=== PATIENT | female | born 1935 | race Caucasian/White ===

== ENCOUNTER 2018-08-22 04:52 | Emergency (ER) | payer MEDICARE, OTHER ==
[2018-08-22] MEDS ORDERED: Silver Nitrate Applicator Each TOP ONE (05:01)
--- NOTE | 2018-08-22 05:05 | EDM.PDOC ---
ED HPI GENERAL MEDICAL PROBLEM - General Chief Complaint: General Stated Complaint: BLEEDING INTERNALLY [id number] Time Seen by Provider: 08/22/18 04:57 Source of Information: Reports: Patient, Family History Limitations: Reports: No Limitations - History of Present Illness INITIAL COMMENTS - FREE TEXT/NARRATIVE: spouse states pt woke him c/o bleeding from mouth. pt states blood coming from mouth - Related Data Allergies Allergy/AdvReac Type Severity Reaction Status Date / Time No Known Allergies Allergy Verified 08/22/18 05:04 Home Meds: Home Meds Aspirin [Halfprin] 81 mg PO DAILY 08/22/18 [History] Carbidopa/Levodopa [Carbidopa-Levo ER 25-100] 1 tab PO TID 08/22/18 [History] Levothyroxine [Synthroid] 50 mcg PO ACBREAKFAST 08/22/18 [History] Rivastigmine 1 patch TOP DAILY 08/22/18 [History] Simvastatin 20 mg PO BEDTIME 08/22/18 [History] ED ROS GENERAL - Review of Systems Review Of Systems: ROS reveals no pertinent complaints other than HPI. ED EXAM, GENERAL - Physical Exam Exam: See Below Exam Limited By: No Limitations General Appearance: Alert, WD/WN, No Apparent Distress Ears: Hearing Grossly Normal Nose: Other (right nostril old blood.) Throat/Mouth: Normal Voice, No Airway Compromise, Other (small abrasion left tongue edge) Head: Atraumatic Neck: Non-Tender, Full Range of Motion Respiratory/Chest: No Respiratory Distress Cardiovascular: Regular Rate, Rhythm GI/Abdominal: Soft, Non-Tender Neurological: Alert, Oriented, Normal Cognition, Normal Gait, No Motor/Sensory Deficits Psychiatric: Normal Affect, Normal Mood Skin Exam: Warm, Dry, Normal Color Lymphatic: No Adenopathy ED GENERAL MEDICAL PROCEDURES - Additional/Other Procedure(s) Other (Free Text) Procedure(s): 1) right hasslebach small oozing 2) silver nitrate applied Course - Vital Signs Last Recorded V/S: Last Vital Signs Temp 36.4 C 08/22/18 04:59 Pulse 85 08/22/18 04:59 Resp 18 08/22/18 04:59 BP 130/45 L 08/22/18 04:59 Pulse Ox 100 08/22/18 04:59 - Orders/Labs/Meds Meds: Medications Discontinued Medications Generic Name Dose Route Start Last Admin Trade Name Freq PRN Reason Stop Dose Admin Silver Nitrate 2 each 08/22/18 05:01 08/22/18 05:10 Silver Nitrate TOP 08/22/18 05:02 2 each ONETIME ONE Administration - Re-Assessments/Exams Free Text/Narrative Re-Assessment/Exam: 08/22/18 05:45 re-exam; s/p cautery no further bleeding Departure - Departure Time of Disposition: 05:46 Disposition: Home, Self-Care 01 Condition: Good Clinical Impression: Anterior epistaxis - Discharge Information Instructions: Nosebleed, [id number] Forms: ED Department Discharge Additional Instructions: 1) avoid nose blowing 2) avoid aspirin next 2 days 3) follow up at clinic 4) recheck as needed
== END 2018-08-22 05:55 | disposition home or self-care (01) ==
LOC: DL.ED 04:52
DX: R04.0 Epistaxis (principal); Z79.82 Long term (current) use of aspirin; Z79.899 Other long term (current) drug therapy
CPT/HCPCS: 30901; 99282

== ENCOUNTER 2019-05-19 08:35 | Emergency (ER) | payer MEDICARE, OTHER ==
[~2019-05-19 08:35] MED LIST: Sodium Chloride 0.9% 10 ML Syringe FLUSH PRN
--- NOTE | 2019-05-19 08:36 | EDM.PDOC ---
ED HPI GENERAL MEDICAL PROBLEM - General Stated Complaint: AMBULANCE Time Seen by Provider: 05/19/19 08:32 Source of Information: Reports: Patient, EMS, EMS Notes Reviewed, Family, RN, RN Notes Reviewed History Limitations: Reports: No Limitations - History of Present Illness INITIAL COMMENTS - FREE TEXT/NARRATIVE: patient presents to ER per [facility] with complaint of constipation.ambulance was dispatched for an elderly female who was unresponsive. Upon arrival to the resident's EMS states patient had awoken for the , states she was sleeping very soundly. Patient does have history of Parkinson's/dementia. states she is acting appropriately at this time. Patient is very quiet and does not answer questions appropriately. Patient is unable to follow commands, confused. states the patient has not had a good bowel movement in about 3 weeks. He states power tool repair technician told him she had a bowel movement movement 3-4 days ago, but was small and hard. states the patient is incontinent of urine, and wears a brief. He states there has been some bright red blood from the rectum, and she does have a history of hemorrhoids. states she does not express pain very often, but he gets the indication she is having pain. 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 - Physical Exam Exam: See Below Exam Limited By: No Limitations General Appearance: Alert, WD/WN, No Apparent Distress, Thin, Other (ementia, confused) Eye Exam: Bilateral Eye: EOMI, Normal Inspection Ears: Normal External Exam, Hearing Grossly Normal Nose: Normal Inspection Throat/Mouth: Normal Inspection, Normal Voice, No Airway Compromise Head Exam: Atraumatic, Normocephalic Neck: Normal Inspection, Supple, Non-Tender, Full Range of Motion Respiratory/Chest: No Respiratory Distress, Lungs Clear, Normal Breath Sounds, No Accessory Muscle Use, Chest Non-Tender Cardiovascular: Normal Peripheral Pulses, Regular Rate, Rhythm, No Edema, No Gallop, No JVD, No Murmur, No Rub GI/Abdominal: Normal Bowel Sounds, Soft, Non-Tender, No Organomegaly, No Distention, No Abnormal Bruit, No Mass (Female) Exam: Deferred Rectal (Female) Exam: Deferred Neuro Exam (Abbreviated): Alert, Confused, Disoriented, Slow to Respond Back Exam: Normal Inspection, Full Range of Motion Extremities: Normal Inspection, Normal Range of Motion, Non-Tender, No Pedal Edema, Normal Capillary Refill Psychiatric: Normal Mood, Flat Affect Skin Exam: Warm, Dry, Intact, Normal Color, No Rash Course - Vital Signs Last Recorded V/S: Last Vital Signs Temp 98.6 F 05/19/19 08:38 Pulse 69 05/19/19 08:38 Resp 18 05/19/19 08:38 BP 159/82 H 05/19/19 08:38 Pulse Ox 100 05/19/19 08:38 - Orders/Labs/Meds Orders: Active Orders 24 hr Category Date Time Status Blood Glucose Check, Bedside [RC] ONETIME Care 05/19/19 08:27 Active EKG Documentation Completion [RC] STAT Care 05/19/19 08:26 Active Peripheral IV Care [RC] . DIRECTED Care 05/19/19 08:27 Active CULTURE BLOOD [BC] Stat Lab 05/19/19 08:45 Received CULTURE BLOOD [BC] Stat Lab 05/19/19 08:54 Received CULTURE URINE [RM] Stat Lab 05/19/19 09:17 Received Blood Culture x2 Reflex Set [OM.PC] Stat Oth 05/19/19 08:26 Ordered Peripheral IV Insertion Adult [OM.PC] Stat Oth 05/19/19 08:26 Ordered Labs: Laboratory Tests 05/19/19 05/19/19 05/19/19 Range/Units 08:45 08:45 08:45 WBC 9.2 (5.0-10.0) 10^3/uL RBC 3.17 L (4.2-5.4) 10^6/uL Hgb 11.1 L (12.0-16.0) g/dL Hct 33.0 L (37.0-47.0) % MCV 104.1 H (80-100) fL MCH 35.0 H (27.0-34.0) pg MCHC 33.6 (33.0-35.0) g/dL Plt Count 244 (150-450) 10^3/uL Neut % (Auto) 70.4 (42.2-75.2) % Lymph % (Auto) 22.3 (20.5-50.1) % Letcher % (Auto) 6.3 (2-8) % Eos % (Auto) 0.7 L (1.0-3.0) % Baso % (Auto) 0.3 (0.0-1.0) % PT 8.5 L (9.0-12.0) SEC INR 0.8 L (0.9-1.2) Sodium 137 (135-145) mmol/L Potassium 3.8 (3.6-5.0) mmol/L Chloride 102 (101-111) mmol/L Carbon Dioxide 27.0 (21.0-31.0) mmol/L Anion Gap 11.8 BUN 20 H (7-18) mg/dL Creatinine 0.8 (0.6-1.3) mg/dL Est Cr Clr Drug Dosing 40.60 mL/min Estimated GFR (MDRD) > 60 BUN/Creatinine Ratio 25.00 Glucose 86 (74-105) mg/dL POC Glucose (83-110) mg/dl Lactic Acid (0.5-2.2) mmol/L Calcium 8.9 (8.4-10.2) mg/dl Total Bilirubin 0.6 (0.2-1.0) mg/dL AST 23 (10-42) IU/L ALT 18 (10-60) IU/L Alkaline Phosphatase 36 L (42-121) IU/L Troponin I < 0.02 (0.00-0.02) ng/ml Total Protein 6.5 L (6.7-8.2) g/dl Albumin 3.9 (3.2-5.5) g/dl Globulin 2.6 Albumin/Globulin Ratio 1.50 Urine Color (YELLOW) Urine Appearance (CLEAR) Urine pH (5.0-9.0) Ur Specific [place] (1.005-1.030) Urine Protein (NEGATIVE) Urine Glucose (UA) (NEGATIVE) Urine Ketones (NEGATIVE) Urine Occult Blood (NEGATIVE) Urine Nitrite (NEGATIVE) Urine Bilirubin (NEGATIVE) Urine Urobilinogen (0.2-1.0) mg/dL Ur Leukocyte Esterase (NEGATIVE) Urine RBC /HPF Urine WBC (0-5/HPF) /HPF Ur Epithelial Cells (NOT SEEN) /HPF Urine Bacteria (0-FEW/HPF) /HPF 05/19/19 05/19/19 05/19/19 Range/Units 08:45 08:50 09:17 WBC (5.0-10.0) 10^3/uL RBC (4.2-5.4) 10^6/uL Hgb (12.0-16.0) g/dL Hct (37.0-47.0) % MCV (80-100) fL MCH (27.0-34.0) pg MCHC (33.0-35.0) g/dL Plt Count (150-450) 10^3/uL Neut % (Auto) (42.2-75.2) % Lymph % (Auto) (20.5-50.1) % Letcher % (Auto) (2-8) % Eos % (Auto) (1.0-3.0) % Baso % (Auto) (0.0-1.0) % PT (9.0-12.0) SEC INR (0.9-1.2) Sodium (135-145) mmol/L Potassium (3.6-5.0) mmol/L Chloride (101-111) mmol/L Carbon Dioxide (21.0-31.0) mmol/L Anion Gap BUN (7-18) mg/dL Creatinine (0.6-1.3) mg/dL Est Cr Clr Drug Dosing mL/min Estimated GFR (MDRD) BUN/Creatinine Ratio Glucose (74-105) mg/dL POC Glucose 77 L (83-110) mg/dl Lactic Acid 0.8 (0.5-2.2) mmol/L Calcium (8.4-10.2) mg/dl Total Bilirubin (0.2-1.0) mg/dL AST (10-42) IU/L ALT (10-60) IU/L Alkaline Phosphatase (42-121) IU/L Troponin I (0.00-0.02) ng/ml Total Protein (6.7-8.2) g/dl Albumin (3.2-5.5) g/dl Globulin Albumin/Globulin Ratio Urine Color Yellow (YELLOW) Urine Appearance Slightly cloudy (CLEAR) Urine pH 7.0 (5.0-9.0) Ur Specific [place] 1.015 (1.005-1.030) Urine Protein 30 H (NEGATIVE) Urine Glucose (UA) Negative (NEGATIVE) Urine Ketones Negative (NEGATIVE) Urine Occult Blood Large H (NEGATIVE) Urine Nitrite Positive H (NEGATIVE) Urine Bilirubin Negative (NEGATIVE) Urine Urobilinogen 0.2 (0.2-1.0) mg/dL Ur Leukocyte Esterase Small H (NEGATIVE) Urine RBC 50-75 H /HPF Urine WBC 30-40 H (0-5/HPF) /HPF Ur Epithelial Cells Rare (NOT SEEN) /HPF Urine Bacteria Many H (0-FEW/HPF) /HPF occult blood: positive Meds: Medications Discontinued Medications Generic Name Dose Route Start Last Admin Trade Name Freq PRN Reason Stop Dose Admin Sodium Chloride 10 ml 05/19/19 08:26 05/19/19 08:36 Saline Flush FLUSH 10 ml ASDIRECTED PRN Administration Keep Vein Open - Radiology Interpretation Free Text/Narrative:: abdominal flat and upright x-ray: 1. Minimal stool identified throughout the course of the large intestine. 2. No sign of abdominal or pelvic mass lesion, inflammatory dirty peritoneal fat , mesentery/retroperitoneal lymphadenopathy, ascites or free intraperitoneal air. Specifically no evidence of mechanical large or small bowel obstruction. 3. Osteoporosis, exaggerated lumbar lordosis and marginal spondylosis. No pathologic skeletal lesion, fracture or dislocation. 4. Atheromatous ptosis calcifications normal caliber aortoiliac vessels 5. Unenhanced liver , solitary large 2.5 cm cyst posteriorly right lobe, stomach, spleen, pancreas and unenhanced kidneys unremarkable. No sign of nephrolithiased bladder wall, chronic inflammation or cystitis. Note: Isolated segment of sigmoid bowel, lower left pelvis, with thickened wall identified on all 3 views should be readily accessible with sigmoidoscope. No vital diverticula or associated pericolonic inflammatory changes. Significance? 6. Large heart. No pericardial effusion. Lung bases clear. 7. Senescent midline uterus. Conclusion: See,'s above regarding sigmoid colon. No obstipation or mechanical bowel obstruction. No sign of acute peritonitis. Usual signs of senescence. Right hepatic cyst. See radiologist's report - Re-Assessments/Exams Free Text/Narrative Re-Assessment/Exam: 05/19/19 13:47 Patient case discussed at length son and . Family was informed that the stool for occult blood was positive, as well as some abnormal findings in the sigmoid colon on the CT. It was explained to the family that the patient is stable at this time, and it would be their choice how aggressive they would like to be. It is unlikely that the patient would be able to tolerate a prep for colonoscopy. Son and were encouraged to return the patient back to the ER if she has any worsening of symptoms, and to follow up with her primary care provider in the clinic for further GI referral. Patient case was then discussed with RUTH Hall at [facility] to inform her of findings and discussions with family. Departure - Departure Time of Disposition: 11:32 Disposition: Home, Self-Care 01 Condition: Fair Clinical Impression: Parkinson disease, Positive occult stool blood test UTI (urinary tract infection) Qualifiers: Urinary tract infection type: acute cystitis Hematuria presence: without hematuria Qualified Code(s): N30.00 - Acute cystitis without hematuria Dementia Qualifiers: Dementia type: unspecified type Dementia behavioral disturbance: without behavioral disturbance Qualified Code(s): F03.90 - Unspecified dementia without behavioral disturbance - Discharge Information *PRESCRIPTION DRUG MONITORING PROGRAM REVIEWED*: No *COPY OF PRESCRIPTION DRUG MONITORING REPORT IN PATIENT CAM: No Instructions: Antibiotic Medicine, Adult, [id number], Stool for Occult Blood Test, Urinary Tract Infection, Adult, [id number], Dementia, [id number] Referrals: Lyric Sorto NP [Primary Care Provider] - Forms: ED Department Discharge Additional Instructions: encourage fluids Rx: Macrobid 100 mg orally twice daily for 7 days Follow-up with your primary care provider for further GI consultation Return to the ER with any worsening of symptoms Sepsis Event Note - Focused Exam Vital Signs: Vital Signs Temp Pulse Resp BP Pulse Ox 05/19/19 08:38 98.6 F 69 18 159/82 H 100 Date Exam was Performed: 05/19/19 Time Exam was Performed: 13:39 - My Orders Last 24 Hours: My Active Orders 05/19/19 08:26 EKG Documentation Completion [RC] STAT Blood Culture x2 Reflex Set [OM.PC] Stat Peripheral IV Insertion Adult [OM.PC] Stat 05/19/19 08:27 Blood Glucose Check, Bedside [RC] ONETIME Peripheral IV Care [RC] . DIRECTED 05/19/19 08:45 CULTURE BLOOD [BC] Stat 05/19/19 08:54 CULTURE BLOOD [BC] Stat 05/19/19 09:17 CULTURE URINE [RM] Stat - Assessment/Plan Last 24 Hours: My Active Orders 05/19/19 08:26 EKG Documentation Completion [RC] STAT Blood Culture x2 Reflex Set [OM.PC] Stat Peripheral IV Insertion Adult [OM.PC] Stat 05/19/19 08:27 Blood Glucose Check, Bedside [RC] ONETIME Peripheral IV Care [RC] . DIRECTED 05/19/19 08:45 CULTURE BLOOD [BC] Stat 05/19/19 08:54 CULTURE BLOOD [BC] Stat 05/19/19 09:17 CULTURE URINE [RM] Stat
[2019-05-19 09:23] LABS: ANION GAP 11.8; CHLORIDE,CL 102 mmol/L (101-111); SODIUM,NA 137 mmol/L (135-145)
--- NOTE | 2019-05-19 10:13 | CT ---
EXAMINATION: Abdomen Pelvis wo Cont SEX: Female AGE: 83 years CLINICAL HISTORY: 83-year-old 102 pound demented female with "constipation". Bowel obstruction? Scan technique: Volume acquisition of data unenhanced CT scan abdomen and pelvis obtained with patient lying supine on the Siemens multislice scanner [place], [place]. All data archived in the PACS system for storage, reformatting axial/sagittal/coronal planes and study. Respiratory motion artifact. Interpretation: 1. Minimal stool identified throughout the course of the large intestine. 2. No sign of abdominal or pelvic mass lesion, inflammatory "dirty" peritoneal fat, mesentery/retroperitoneal lymphadenopathy, ascites or free intraperitoneal air. Specifically, no evidence of mechanical large or small bowel obstruction. 3. Osteoporosis, exaggerated lumbar lordosis and marginal spondylosis. No pathologic skeletal lesion, fracture or dislocation. 4. Atheromatous calcifications normal caliber aortoiliac vessels. 5. Unenhanced liver (solitary large 2.5 cm cyst posteriorly right lobe), stomach, spleen, pancreas and unenhanced kidneys unremarkable. No sign of nephrolithiasis or obstructive uropathy. Thickened bladder wall (chronic inflammation or cystitis?). Note: Isolated segment of sigmoid bowel, lower left pelvis, with thickened wall identified on all 3 views should be readily accessible with sigmoidoscope. No diverticula or associated pericolonic inflammatory changes. Significance? 6. Large heart. No pericardial effusion. Lung bases clear. 7. Senescent midline uterus. CONCLUSION: See comments above regarding sigmoid colon. No obstipation or mechanical bowel obstruction. No sign of acute peritonitis. Usual signs of senescence. Right hepatic cyst.
== END 2019-05-19 11:32 | disposition home or self-care (01) ==
LOC: DL.ED 08:35
DX: G20 Parkinson's disease (principal); R19.5 Other fecal abnormalities
CPT/HCPCS: 36415; 74176; 80053; 81001; 82272; 82962; 83605; 84484; 85025; 85610; 87040; 87086; 87088; 87186; 93005; 99284; 99285-25

== ENCOUNTER 2019-06-27 09:29 | Emergency (ER) | payer MEDICARE, OTHER ==
[2019-06-27] MEDS ORDERED: Sodium Chloride 0.9% 10 ML Syringe FLUSH PRN (09:54)
[2019-06-27] MEDS ORDERED: Iopamidol 612 MG/ML 100 ML Bottle IVPUSH ONE (10:22)
[2019-06-27 10:33] LABS: ANION GAP 13.8; CHLORIDE,CL 103 mmol/L (101-111); SODIUM,NA 139 mmol/L (135-145)
--- NOTE | 2019-06-27 10:55 | EDM.PDOC ---
ED HPI GENERAL MEDICAL PROBLEM - General Chief Complaint: Chest Pain Stated Complaint: AMBULANCE Time Seen by Provider: 06/27/19 09:40 Source of Information: Reports: Patient, RN, Significant Other History Limitations: Reports: Altered Mental Status - History of Present Illness INITIAL COMMENTS - FREE TEXT/NARRATIVE: 83 year old female with a history of Parkinson and dementia who presents to the ER with EMS after sustaining a fall one night ago. Patient's spouse reports she was brushing her teeth in the bathroom sink and he walk to pickup something from the bedroom when he heard the patient fall. He reports she hit her head on the bathtub and landed on her buttocks. He denies any loss of consciousness but states it was very difficult for him to get the patient off the floor. Patient' s reports patient can walked with guidance but was unable to get out of bed prior to this visit. He states confusion is at baseline. He states patient reports pain with touching the right side of her chest. Patient has a right mastectomy one month ago. Patient is confused and again this is her baseline. She is moving her extremity but does not want to be touched. - Related Data Allergies Allergy/AdvReac Type Severity Reaction Status Date / Time No Known Allergies Allergy Verified 06/27/19 09:40 Home Meds: Home Meds Aspirin [Halfprin] 81 mg PO DAILY 08/22/18 [History] Carbidopa/Levodopa [Carbidopa-Levo ER 25-100] 1 tab PO TID 08/22/18 [History] Levothyroxine [Synthroid] 50 mcg PO ACBREAKFAST 08/22/18 [History] Rivastigmine 1 patch TOP DAILY 08/22/18 [History] Simvastatin 20 mg PO BEDTIME 08/22/18 [History] Sertraline [Zoloft] 25 mg PO DAILY 05/19/19 [History] Latanoprost/Pf [Latanoprost 0.005% Eye Drop] 1 drop EYEBOTH BEDTIME 06/27/19 [ History] Past Medical History HEENT History: Reports: Epistaxis Genitourinary History: Reports: UTI, Recurrent [employer]INE [employer]ATOR History: Reports: Neurological History: Reports: Parkinson's Psychiatric History: Reports: Dementia Endocrine/Metabolic History: Reports: Hypothyroidism Oncologic (Cancer) History: Reports: Breast - Past Surgical History Oncologic Surgical History: Reports: Mastectomy Other Oncologic Surgeries/Procedures: 20 years ago Social & Family History - Family History Family Medical History: Noncontributory - Tobacco Use Smoking Status *Q: Never Smoker - Caffeine Use Caffeine Use: Reports: None - Recreational Drug Use Recreational Drug Use: No Review of Systems - Review of Systems Review Of Systems: Comprehensive ROS is negative, except as noted in HPI. ED EXAM, GENERAL - Physical Exam Exam: See Below Exam Limited By: Altered Mental Status General Appearance: Alert, No Apparent Distress Ears: Normal External Exam, Normal Canal, Hearing Grossly Normal, Normal TMs Nose: Normal Inspection, Normal Mucosa, No Blood Throat/Mouth: Normal Inspection, Normal Lips, Normal Teeth, Normal Gums, Normal Oropharynx, Normal Voice, No Airway Compromise Head: Atraumatic, Normocephalic Neck: Normal Inspection, Supple, Non-Tender, Full Range of Motion Respiratory/Chest: No Respiratory Distress, Lungs Clear, Normal Breath Sounds, No Accessory Muscle Use, Other (Patient pushes my hand way when I tried to observed her chest.) Cardiovascular: Normal Peripheral Pulses, Regular Rate, Rhythm, No Edema, No Gallop, No JVD, No Murmur, No Rub Peripheral Pulses: 3+: Posterior Tibial (L), Posterior Tibial (R), Dorsalis Pedis (L), Dorsalis Pedis (R) GI/Abdominal: Normal Bowel Sounds Back Exam: Normal Inspection Extremities: Normal Inspection, Non-Tender, No Pedal Edema, Normal Capillary Refill, Limited Range of Motion (due to pain) Neurological: Alert, Oriented Psychiatric: Normal Affect, Normal Mood, Anxious Skin Exam: Warm, Dry, Intact, Normal Color, No Rash Lymphatic: No Adenopathy Course - Vital Signs Last Recorded V/S: Last Vital Signs Temp 97.8 F 06/27/19 09:30 Pulse 80 06/27/19 09:30 Resp 16 06/27/19 09:30 BP 143/68 H 06/27/19 09:30 Pulse Ox 98 06/27/19 09:30 - Orders/Labs/Meds Orders: Active Orders 24 hr Category Date Time Status Peripheral IV Care [RC] . DIRECTED Care 06/27/19 09:58 Ordered Up With Assistance [RC] ASDIRECTED Care 06/27/19 09:54 Ordered Cervical Spine wo Cont [CT] Stat Exams 06/27/19 09:54 Ordered Chest w Cont [CT] Stat Exams 06/27/19 09:54 Ordered Head wo Cont [CT] Stat Exams 06/27/19 09:54 Ordered Pelvis wo Cont [CT] Stat Exams 06/27/19 09:54 Ordered COMPREHENSIVE METABOLIC PN,CMP [CHEM] Stat Lab 06/27/19 09:54 Ordered INR,PT,PROTHROMBIN TIME [COAG] Stat Lab 06/27/19 09:54 Ordered UA RFX CLARISSE AND CULT IF INDIC [URIN] Stat Lab 06/27/19 09:54 Ordered Sodium Chloride 0.9% [Saline Flush] Med 06/27/19 09:54 Ordered 10 ml FLUSH ASDIRECTED PRN Peripheral IV Insertion Adult [OM.PC] Urgent Oth 06/27/19 09:54 Ordered Medication Orders Sodium Chloride (Saline Flush) 10 ml FLUSH ASDIRECTED PRN PRN Reason: Keep Vein Open Last Admin: 06/27/19 10:32 Dose: 10 ml Labs: Laboratory Tests 06/27/19 Range/Units 10:06 WBC 12.3 H (5.0-10.0) 10^3/uL RBC 3.23 L (4.2-5.4) 10^6/uL Hgb 11.3 L (12.0-16.0) g/dL Hct 34.4 L (37.0-47.0) % MCV 106.5 H (80-100) fL MCH 35.0 H (27.0-34.0) pg MCHC 32.8 L (33.0-35.0) g/dL Plt Count 229 (150-450) 10^3/uL Neut % (Auto) 86.4 H (42.2-75.2) % Lymph % (Auto) 6.7 L (20.5-50.1) % Carter % (Auto) 6.7 (2-8) % Eos % (Auto) 0.0 L (1.0-3.0) % Baso % (Auto) 0.2 (0.0-1.0) % Meds: Medications Generic Name Dose Route Start Last Admin Trade Name Freq PRN Reason Stop Dose Admin Sodium Chloride 10 ml 06/27/19 09:54 06/27/19 10:32 Saline Flush FLUSH 10 ml ASDIRECTED PRN Administration Keep Vein Open Discontinued Medications Generic Name Dose Route Start Last Admin Trade Name Freq PRN Reason Stop Dose Admin Iopamidol 100 ml 06/27/19 10:22 Isovue-300 (61%) IVPUSH 06/27/19 10:23 ONETIME ONE - Re-Assessments/Exams Free Text/Narrative Re-Assessment/Exam: Reviewed labs and CT results with patient's . Discussed case with [facility] and Dr. Gerard who accepted patient for transfer. Patient's in agreement to this treatment plan. [facility] took patient to [place] as the roads were icy. Departure - Departure Time of Disposition: 13:00 Disposition: DC/Tfer to [facility] 02 Clinical Impression: Pubic ramus fracture Qualifiers: Encounter type: initial encounter Fracture type: closed Laterality: right Qualified Code(s): S32.591A - Other specified fracture of right pubis, initial encounter for closed fracture Rib fractures Qualifiers: Encounter type: initial encounter Rib fracture type: multiple ribs Fracture type: closed Laterality: right Qualified Code(s): S22.41XA - Multiple fractures of ribs, right side, initial encounter for closed fracture Fall Qualifiers: Encounter type: initial encounter Qualified Code(s): W19.XXXA - Unspecified fall, initial encounter - Discharge Information Forms: ED Department Discharge, Interfacility Transfer [facility] Sepsis Event Note - Evaluation Sepsis Screening Result: No Definite Risk - Focused Exam Vital Signs: Vital Signs Temp Pulse Resp BP Pulse Ox 06/27/19 09:30 97.8 F 80 16 143/68 H 98 Date Exam was Performed: 06/27/19 Time Exam was Performed: 10:37 - My Orders Last 24 Hours: My Active Orders 06/27/19 09:54 Up With Assistance [RC] ASDIRECTED Cervical Spine wo Cont [CT] Stat Chest w Cont [CT] Stat Head wo Cont [CT] Stat Pelvis wo Cont [CT] Stat COMPREHENSIVE METABOLIC PN,CMP [CHEM] Stat INR,PT,PROTHROMBIN TIME [COAG] Stat UA RFX CLARISSE AND CULT IF INDIC [URIN] Stat Sodium Chloride 0.9% [Saline Flush] 10 ml FLUSH ASDIRECTED PRN Peripheral IV Insertion Adult [OM.PC] Urgent 06/27/19 09:58 Peripheral IV Care [RC] . DIRECTED - Assessment/Plan Last 24 Hours: My Active Orders 06/27/19 09:54 Up With Assistance [RC] ASDIRECTED Cervical Spine wo Cont [CT] Stat Chest w Cont [CT] Stat Head wo Cont [CT] Stat Pelvis wo Cont [CT] Stat COMPREHENSIVE METABOLIC PN,CMP [CHEM] Stat INR,PT,PROTHROMBIN TIME [COAG] Stat UA RFX CLARISSE AND CULT IF INDIC [URIN] Stat Sodium Chloride 0.9% [Saline Flush] 10 ml FLUSH ASDIRECTED PRN Peripheral IV Insertion Adult [OM.PC] Urgent 06/27/19 09:58 Peripheral IV Care [RC] . DIRECTED
== END 2019-06-27 13:50 ==
LOC: DL.ED 09:29
DX: S22.41XA Multiple fractures of ribs, right side, initial encounter for closed fracture (principal); S32.591A Other specified fracture of right pubis, initial encounter for closed fracture; G20 Parkinson's disease; F02.80 Dementia in other diseases classified elsewhere, unspecified severity, without behavioral disturbance, psychotic disturbance, mood disturbance, and anxiety; E03.9 Hypothyroidism, unspecified; Z79.899 Other long term (current) drug therapy; W01.198A Fall on same level from slipping, tripping and stumbling with subsequent striking against other object, initial encounter
CPT/HCPCS: 36415; 70450; 71260; 72125; 72192; 80053; 81003; 85025; 85610; 99284; 99285; Q9967